=== PATIENT | male | born 1980 | race Caucasian/White ===

== ENCOUNTER 2017-12-18 16:11 | Emergency (ER) | payer MEDICARE, MEDICAID ==
[~2017-12-18 16:11] MED LIST: Acetaminophen/HYDROcodone 325-5 MG Tab ONE
--- NOTE | 2017-12-18 20:02 | ER ---
The patient is a 37-year-old male who presents to the ER with a chief complaint of dental pain and swelling. He had his upper teeth removed approximately 1 week ago. He was started on amoxicillin, but does not feel that it is helping. He does not have fever. He does not have nausea, vomiting, or cough, but does have difficulty eating due to discomfort. The patient denies any other symptoms. ALLERGIES: IBUPROFEN, HE HAS HAD A GI BLEED WITH THIS. CURRENT MEDICATIONS: Lisinopril 20 mg p.o. daily, Protonix 40 mg p.o. daily, Abilify 2 mg p.o. daily, Paxil 10 mg p.o. daily, albuterol metered dose inhaler 2 puffs q.6. PHYSICAL EXAMINATION: GENERAL: He is alert and oriented, in no apparent distress. VITAL SIGNS: Blood pressure is 142/100, pulse is 111, temperature is 98, O2 sats 99%, respirations are 16. HEENT: Generally unremarkable other than the patient has all of his upper teeth extracted. The gums are erythematous. There is some fibrinous exudate on the gums. There is no obvious bulging on the gingival membranes. NECK: Supple. No nodes. LUNGS: Clear. HEART: Regular sinus rhythm. ASSESSMENT: Dental infection. PLAN: I have changed him over to clindamycin 300 mg p.o. q.8. The patient was given enough to last him until Wednesday when he will need to go fill his prescription for the remainder. I also gave him in the ER pack of hydrocodone 5/325, he can take one p.o. q.4-6 as needed. Discussed with him that he should probably not take Tylenol with it as he should not be taking more than 3250 mg of Tylenol daily, which would be 6 extra-strength Tylenol or 10 regular Tylenol in total and each of the hydrocodone was count as 1 regular Tylenol. The patient to return to clinic if this fails to improve over the next few days or for any worsening symptoms. JANA/SANDRA /[id number]
[2017-12-18 20:42] VITALS: BP 142/100
== END 2017-12-18 17:00 | disposition home or self-care (01) ==
LOC: LB.ED 16:11
DX: K04.7 Periapical abscess without sinus (principal)
CPT/HCPCS: 99282; A9270-GY

== ENCOUNTER 2017-12-19 12:51 | Emergency (ER) | payer MEDICARE, MEDICAID ==
[2017-12-19 12:56] VITALS: BP 154/101
[2017-12-19] MEDS ORDERED: Acetaminophen/oxyCODONE 325-5 MG Tab ONE (13:00)
[2017-12-19] MEDS: Ketorolac 60 MG/2 ML SDV IM ONE (13:10)
--- NOTE | 2017-12-19 14:18 | ER ---
HISTORY OF PRESENT ILLNESS: The patient is a 37-year-old male who comes in today with a continued tooth pain. He was seen in the ER yesterday, was given some hydrocodone and some clindamycin. He had been taking amoxicillin from the dentist, but had run out, and notes it really did not seem to be working. The patient's pain is mostly on the left. He has had most of his upper right teeth extracted about a week ago. The patient appears likely to have a dry socket. I discussed with him that he could try some Orajel and clove oil also. I have recommended he continues to stay on the clindamycin. We gave him some hydrocodone yesterday, but that did not appear to be effective. The patient does not have an allergy to NSAIDs, but did have a previous GI bleed. He is currently on Protonix. We will have him increase his Protonix to twice a day. He can try some Advil for some short-term relief, which will help, and we gave him a shot of Toradol 60 mg IM in the emergency room. I also gave him a prescription for some Percocet 5/325 one to two p.o. q.4-6, 10 tablets dispensed in the ER, and I gave him a prescription for 10 more tablets that he can fill until he can get to the dentist on Wednesday. I did recommend that he really needs to go back and see the dentist on Wednesday as he will probably need to have the sockets cleaned out and packed with a dressing, which I do not have available here. His physical exam is unchanged, and he is still afebrile. JANA/SANDRA /[id number]
--- NOTE | 2018-01-31 08:38 | ER ---
ADDENDUM: FINAL DIAGNOSIS: Dental pain. JANA/MODL /[id number]
== END 2017-12-19 13:35 | disposition home or self-care (01) ==
LOC: LB.ED 12:51
DX: K08.89 Other specified disorders of teeth and supporting structures (principal)
CPT/HCPCS: 96372; 99282; 99282-25; A9270-GY; J1885

== ENCOUNTER 2019-06-01 10:49 | Emergency (ER) | payer MEDICARE, MEDICAID ==
[2019-06-11] MEDS ORDERED: EPINEPHrine 1:10,000 1 MG/10 ML Syringe ONE (07:17)
[2019-06-14 09:29] VITALS: BP_SYST 67
== END 2019-06-05 10:55 | disposition home or self-care (01) ==
LOC: LB.ED 10:49
DX: Z53.21 Procedure and treatment not carried out due to patient leaving prior to being seen by health care provider (principal)

== ENCOUNTER → 2019-06-01 | Outpatient (CLI) | payer MEDICARE, OTHER | LOC: LB.CLINIC 11:39 | PROVIDERS: ATTEND Nurse Practitioner Family | DX: I10 Essential (primary) hypertension (principal) | CPT/HCPCS: 36415; 80048 ==

== ENCOUNTER 2019-06-04 15:54 | Emergency (ER) | payer MEDICARE, OTHER ==
[2019-06-04 16:10] VITALS: BP 147/96; PULSE 111
[2019-06-04] MEDS ORDERED: Amoxicillin/Clavulanate K 875-125 MG Tab ONE (16:15)
--- NOTE | 2019-06-04 17:30 | ER ---
REASON FOR EMERGENCY ROOM VISIT: Left-sided neck pain. HISTORY OF PRESENT ILLNESS: This 39-year-old gentleman woke up this morning with soreness involving his left neck. It is worsened gradually throughout the day. It is increased with moving as well as mastication. He has no prior history of neck pain or injury. He has not had any fever. He has recently required the fitting for upper dentures and has had some gum soreness involving the left side for the past 2 days. He has a history of prior dental infections and abscesses and has had multiple extractions which culminated in his having complete upper dentures. He has had no fever or chills. PAST MEDICAL HISTORY: 1. OCD. 2. Peptic ulcer disease. 3. History of alcohol abuse. 4. History of dental infections as listed above. MEDICATIONS: Medications reviewed. See EMR. They include the following. Abilify, Paxil for OCD, Protonix, Prazosin, lisinopril, and Singulair. ALLERGIES: TO NSAIDS. REVIEW OF SYSTEMS: Pertinent positives and negatives as listed in HPI. PHYSICAL EXAMINATION: GENERAL: He is a pleasant gentleman, in no acute distress. He is afebrile. His pulse is 111, blood pressure 147/96, respirations 18, O2 sats 98%. HEENT: Head is normocephalic. No conjunctivitis is noted. TMs are normal. Oropharynx, he has some redness and swelling involving a maxillary gingiva on the left side with and it appears to be excoriated over approximately 1 cm length over his gum on the left side. This area is tender. There is no purulence noted. The oropharynx itself looks normal. NECK: Examination of his neck, he does have some mild to moderate adenopathy which is tender and extends all the way up to the angle of his mandible on the left side. The passive range of motion is normal. There is no tenderness to palpation or percussion over his cervical spine. There is no cervical spine paraspinal muscle spasm. CHEST: Clear to auscultation. CARDIAC: Regular rate without murmur. IMPRESSION: Gingivitis on the left with reactive adenopathy causing pain. PLAN: I recommended that he gargle every 2 hours alternating between saltwater and Listerine or Scope or some other similar mouthwash. In addition, we will give him amoxicillin/clavulanic 875 mg 1 p.o. b.i.d. x5 days. I told him to keep his dentures out until he has called and made an appointment to see his dentist to see if he can get refitted or to find some remedy to obviate this from recurring. All questions were answered. He understands and agrees. MONIKA/SANDRA /[id number]
== END 2019-06-04 16:30 | disposition home or self-care (01) ==
LOC: LB.ED 15:54
DX: K05.10 Chronic gingivitis, plaque induced (principal); Z88.8 Allergy status to other drugs, medicaments and biological substances
CPT/HCPCS: 99283; A9270

== ENCOUNTER 2019-06-05 07:55 | Emergency (ER) | payer MEDICARE, OTHER ==
[2019-06-05] MEDS ORDERED: Acetaminophen/HYDROcodone 325-5 MG Tab ONE (09:00)
--- NOTE | 2019-06-05 09:54 | ER ---
REASON FOR VISIT: Dental pain. HISTORY OF PRESENT ILLNESS: This 39-year-old man was in last night with gingivitis involving his left maxillary gum tissue from an ill-fitting denture. He actually had an area of denuded mucosa overlying the area corresponding to his left maxillary molars. This was causing a great deal of pain in his mouth and some reactive adenopathy in his left neck. He was afebrile. Then, he was placed on amoxicillin clavulanate 875 b.i.d. and he assured me that he would be following up with his dentist in [place] this week. He was instructed regarding mouthwashes and the antibiotics and to avoid continued use of his dentures until he could have this issue resolved. Overnight, he returns now because while his neck discomfort has decreased somewhat, the pain in his mouth has kept him up all night and he wishes to get an excuse to stay home from work. PAST MEDICAL HISTORY: See previous note. MEDICATIONS: See previous note from 06/04. REVIEW OF SYSTEMS: Otherwise unremarkable. He has not had any fever or chills. Only localized pain in his mouth that has been most troubling to him. PHYSICAL EXAMINATION: GENERAL: He is afebrile. The area of shallow ulceration actually looks better than yesterday and only faintly visible this morning. NECK: His neck does not have the same degree of tenderness that it did yesterday over the cervical lymph nodes. IMPRESSION: Gingivitis with continued pain. PLAN: I did go ahead and give him hydrocodone 5/325, dispensed #10, 1 every 4 hours p.r.n. for pain. He assures me that he will be able to get in to see his dentist in [place], which I think is the ultimate answer given my limited experience in the specialty. He understands and agrees with this. All questions were answered. ARCHANA /[id number]
[2019-06-05 17:44] VITALS: BP 153/111; PULSE 111
== END 2019-06-05 08:50 | disposition home or self-care (01) ==
LOC: LB.ED 07:55
DX: K05.10 Chronic gingivitis, plaque induced (principal)
CPT/HCPCS: 99282; A9270; 99283

== ENCOUNTER → 2019-06-13 | Outpatient (CLI) | payer MEDICARE, MEDICAID | LOC: LB.CLINIC 16:16 | PROVIDERS: ATTEND Nurse Practitioner Family | DX: R10.9 Unspecified abdominal pain (principal); M25.529 Pain in unspecified elbow | CPT/HCPCS: 36415; 84550; 85025 ==

== ENCOUNTER 2019-07-31 22:43 | Emergency (ER) | payer MEDICARE, MEDICAID ==
[2019-07-31] MEDS ORDERED: hydrOXYzine HCl 25 MG Tab ONE (22:55)
[2019-07-31 23:08] VITALS: BP 142/98; PULSE 91
--- NOTE | 2019-07-31 23:42 | EDM.PDOC ---
ED HPI GENERAL MEDICAL PROBLEM - General Chief Complaint: General Stated Complaint: SEIZURE ACTIVITY Time Seen by Provider: 07/31/19 23:10 Source of Information: Reports: Patient History Limitations: Reports: No Limitations - History of Present Illness INITIAL COMMENTS - FREE TEXT/NARRATIVE: This is a 39yoM here for concerns of seizure activity. His last episode was over 3 years ago and was diagnosed with it during a time of high stress and anxiety. He was placed on vistaril in the past for the same issues and is no longer taking it. He notes some tingling of the left arm and left leg at the same times. He has had this issue with stress as well in the past. Onset: Sudden Duration: Resolved Prior to Arrival Location: Reports: Generalized Severity: Mild Associated Symptoms: Reports: No Other Symptoms - Related Data Allergies Allergy/AdvReac Type Severity Reaction Status Date / Time NSAIDS (Non-Steroidal Allergy Bleeding Verified 07/31/19 22:46 Anti-Inflamma Home Meds: Home Meds Pantoprazole Sodium [Protonix] 40 mg PO DAILY 02/05/17 [History] ARIPiprazole [Abilify] 15 mg PO DAILY 06/28/17 [History] Lisinopril 20 mg PO DAILY 06/28/17 [History] PARoxetine HCl [Paxil] 40 mg PO DAILY 06/28/17 [History] Prazosin [Minpress] 1 tab PO BEDTIME 06/28/17 [History] Amphetamine/Dextroamphetamine [Adderall] 10 mg PO DAILY 07/31/19 [History] hydrOXYzine HCL [Hydroxyzine HCl] 50 mg PO TID PRN #90 tablet 07/31/19 [Rx] Past Medical History HEENT History: Reports: Impaired Vision, Other (See Below) Other HEENT History: Teeth extracted Cardiovascular History: Reports: CAD, Other (See Below) Other Cardiovascular History: 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 Respiratory History: Reports: Asthma Gastrointestinal History: Reports: GERD Musculoskeletal History: Reports: Other (See Below) Other Musculoskeletal History: Femur Fx at age of 9 Neurological History: Reports: Seizure, Other (See Below) Other Neuro History: seizures from anxiety. Psychiatric History: Reports: ADHD, Addiction, Depression, PTSD Endocrine/Metabolic History: Reports: Hypothyroidism Hematologic History: Reports: Folic Acid - Infectious Disease History Infectious Disease History: Reports: Chicken Pox - Past Surgical History HEENT Surgical History: Reports: Adenoidectomy, Tonsillectomy Cardiovascular Surgical History: Reports: None GI Surgical History: Reports: Cholecystectomy Social & Family History - Family History Family Medical History: Noncontributory - Tobacco Use Smoking Status *Q: Current Every Day Smoker Years of Tobacco use: 24 Packs/Tins Daily: 0.5 Used Tobacco, but Quit: No - Caffeine Use Caffeine Use: Reports: Coffee, Energy Drinks, Soda - Recreational Drug Use Recreational Drug Use: No ED ROS GENERAL - Review of Systems Review Of Systems: Comprehensive ROS is negative, except as noted in HPI. ED EXAM, GENERAL - Physical Exam Exam: See Below Exam Limited By: No Limitations General Appearance: Alert, WD/WN, No Apparent Distress Eye Exam: Bilateral Eye: EOMI, PERRL Ears: Normal External Exam Nose: Normal Inspection Throat/Mouth: Normal Inspection Head: Atraumatic, Normocephalic Neck: Normal Inspection Respiratory/Chest: No Respiratory Distress Cardiovascular: Normal Peripheral Pulses, Regular Rate, Rhythm GI/Abdominal: Normal Bowel Sounds Extremities: Normal Inspection Neurological: Alert, Oriented, CN II-XII Intact, Normal Cognition, Normal Gait, Normal Reflexes, No Motor/Sensory Deficits Psychiatric: Normal Affect, Normal Mood Skin Exam: Warm, Dry, Intact Course - Vital Signs Last Recorded V/S: Last Vital Signs Temp 36.1 C 07/31/19 22:52 Pulse 91 07/31/19 22:52 Resp 20 07/31/19 22:52 BP 142/98 H 07/31/19 22:52 Pulse Ox 99 07/31/19 22:52 Departure - Departure Time of Disposition: 23:30 Disposition: Home, Self-Care 01 Condition: Good Clinical Impression: Absence attack - Discharge Information Prescriptions: hydrOXYzine HCL [Hydroxyzine HCl] 50 mg PO TID PRN #90 tablet PRN Reason: Anxiety Instructions: Hydroxyzine capsules or tablets Forms: ED Department Discharge Additional Instructions: Take provided Vistaril as instructed: 2 tablets by mouth tonight, then 2 more tablets when you wake in morning (doses should be at least 8 hours apart). casework supervisor prescription for additional Vistaril at regular pharmacy tomorrow. Keep scheduled appointment with telepsych. Follow up in clinic as needed. Call with any questions. Sepsis Event Note - Evaluation Sepsis Screening Result: No Definite Risk - Focused Exam Vital Signs: Vital Signs Temp Pulse Resp BP Pulse Ox 07/31/19 22:52 36.1 C 91 20 142/98 H 99 Date Exam was Performed: 07/31/19 Time Exam was Performed: 23:32 - Problem List & Annotations (1) Absence attack SNOMED Code(s): 27819359 Code(s): G40.A09 - ABSENCE EPILEPTIC SYNDROME, NOT INTRACTABLE, W/O STAT EPI Status: Suspected Priority: High - Problem List Review Problem List Initiated/Reviewed/Updated: Yes - Assessment/Plan Plan: Counseled on medication management and f/u if symptoms return. Discussed f/u in clinic and ER as needed. Continue current medications and refill to be sent to Pharmacy. F/u with Psychiatry on the as scheduled.
== END 2019-07-31 23:24 | disposition home or self-care (01) ==
LOC: LB.ED 22:43
DX: G40.A09 Absence epileptic syndrome, not intractable, without status epilepticus (principal); I25.10 Atherosclerotic heart disease of native coronary artery without angina pectoris; K21.9 Gastro-esophageal reflux disease without esophagitis; J45.909 Unspecified asthma, uncomplicated; F32.9 Major depressive disorder, single episode, unspecified; E03.9 Hypothyroidism, unspecified; F17.210 Nicotine dependence, cigarettes, uncomplicated; Z88.8 Allergy status to other drugs, medicaments and biological substances; Z79.899 Other long term (current) drug therapy
CPT/HCPCS: 99283; A9270

== ENCOUNTER 2019-08-03 22:29 | Observation (INO) | payer MEDICARE, MEDICAID ==
[2019-08-03] MEDS ORDERED: HYDROXYZINE HCL 50 MG PO PRN (23:34)
[2019-08-03] MEDS ORDERED: MVI, Adult with Vitamin K 10 ML, Thiamine 100 MG, Folic Acid 1 MG, Magnesium Sulfate 3 ... IV SCH ×5 (23:45)
[2019-08-03] MEDS ORDERED: LORazepam 2 MG/ML SDV IVPUSH PRN (23:48)
[2019-08-04] MEDS: Sodium Chloride 0.9% 1,000 ML IV SCH ×2 (00:25→06:49)
--- NOTE | 2019-08-04 00:52 | ER ---
REASON FOR EMERGENCY ROOM VISIT: Apparent alcohol intoxication and inappropriate behavior. HISTORY OF PRESENT ILLNESS: This 39-year-old man has been to the emergency room on a number of different occasions for alcohol-related problems in the past. Apparently, he states he has been drinking vodka all day. The ambulance was called after a family member found him lying on snowbank apparently in an intoxicated state with slurred speech, etc. They tried to bring him in the house, and he was acting somewhat violently and inappropriately. He started doing unusual things like chewing on the stove, etc. He was taken to the shelter by police officers but shortly after arrival there, he fell and struck his head, and they felt that he should be evaluated for this. He denies any pain at this time. PAST MEDICAL HISTORY: 1. Multiple visits related to alcohol intoxication and possible drug abuse in the past. 2. PTSD. 3. History of depression. 4. History of seizures. 5. History of coronary artery disease. 6. History of CVA. 7. Hypothyroidism. MEDICATIONS: Reviewed. Please see electronic medical record. They include the followin. Hydroxyzine. 2. Prazosin. 3. Protonix. 4. Paxil. 5. Lisinopril. 6. Adderall. 7. Abilify. ALLERGIES: TO NSAIDS. REVIEW OF SYSTEMS: Difficult to obtain at this time. All pertinent positives and negatives as listed in the HPI. PHYSICAL EXAMINATION: GENERAL: His speech is somewhat slurred, consistent with intoxication. He has a smell of alcohol on his breath. VITAL SIGNS: His temperature is 36.4 degrees, heart rate is 110, blood pressure 140/96, respirations 20, O2 sats 98%. HEENT: Head is atraumatic. TMs are normal. Pupils are equally round and reactive to light. Oropharynx is normal. NECK: Supple. No adenopathy. No tenderness. CHEST: Clear to auscultation. CARDIAC: Regular rate without murmur. ABDOMEN: Soft, nontender. EXTREMITIES: Normal pulses. No edema. NEUROLOGIC: He moves all 4 extremities to command. His speech is slurred, as mentioned above, consistent with intoxication. LABORATORY DATA: His CBC is within normal limits as is his urinalysis. A CBC shows that his electrolytes are normal. He does have some transaminase elevations with an AST of 55, ALT of 126, and alkaline phosphatase of 197. A blood alcohol level is 252, which is significantly elevated. A CT scan of his head without contrast showed no acute injury or any significant abnormalities. IMPRESSION: Alcohol intoxication. PLAN: He will be admitted and observed. We will treat him with a banana bag intravenously and hydrate him as well. He will be given Ativan as needed for any agitation. He agrees with this plan. ARCHANA /[id number]
[2019-08-04] MEDS ORDERED: MVI, Adult with Vitamin K 10 ML, Thiamine 100 MG, Folic Acid 1 MG, Magnesium Sulfate 3 ... IV ONE ×10 (04:00→07:45)
[2019-08-04] MEDS ORDERED: Pantoprazole 40 MG Tab.CR PO SCH (08:00)
[2019-08-04] MEDS ORDERED: Non-Formulary Medication 1 Each (Paroxetine Hcl [Paxil] 40 MG) PO SCH (08:00)
[2019-08-04] MEDS ORDERED: AMPHETAMINE PO SCH (08:00)
[2019-08-04] MEDS ORDERED: Lisinopril 20 MG Tab PO SCH (08:00)
[2019-08-04] MEDS ORDERED: DEXTROAMPHETAMINE PO SCH (08:00)
[2019-08-04] MEDS ORDERED: Non-Formulary Medication 1 Each (Aripiprazole [Abilify] 15 MG) PO SCH (08:00)
--- NOTE | 2019-08-04 09:39 | CT ---
Date of Service: 08/03/19 Clinical Data: Had a fall, with alcohol intoxication NONENHANCED BRAIN CT: Multislice acquisition through brain without IV contrast was performed. No priors. No masses or mass effect. No intracranial hemorrhage. No evidence of acute or subacute infarct. No osseous abnormalities. IMPRESSION: No acute intracranial abnormalities. [id number] [facility]
[2019-08-04 11:40] VITALS: PULSE 93
[2019-08-04 11:41] VITALS: BP 147/95
[2019-08-04] MEDS ORDERED: PRAZOSIN PO SCH (20:00)
--- NOTE | 2019-08-07 08:10 | DISCH ---
ADMISSION DIAGNOSIS: Acute alcohol intoxication. DISCHARGE DIAGNOSIS: Acute alcohol intoxication. HISTORY: This 39-year-old man has had a history of alcohol abuse in the past. Yesterday, he admits that he had started drinking vodka throughout the day, and he was found lying in the snowbank quite obviously intoxicated last evening. He was subsequently noted to be somewhat violent and exhibiting inappropriate behavior (see admission history and physical). He was going to be taken to skilled nursing. However, when he arrived at skilled nursing, he fell and struck his head, prompting an ER visit. When he was seen last night, he had slurred speech and alcohol on his breath and a blood alcohol level of 252. He underwent a CT scan of his head without contrast, which showed no acute injury. He was admitted and observed overnight. He was given 1 banana bag with multivitamins, thiamine, and folic acid. On evaluating him this morning, he is completely appropriate, answers questions appropriately and offers no complaints. He wishes to be discharged at this time. I did have a long talk with him about alcohol abuse. He gives me his assurance that he will abstain. We did talk very briefly about treatment, etc., and he has simply nodded his head and said he would take that into consideration. Discharge diagnosis is acute alcohol intoxication, resolved. He will be discharged and was instructed to follow up with his provider, whereupon potential treatment programs can be discussed. ARCHANA /[id number]
== END 2019-08-04 13:00 | disposition home or self-care (01) ==
LOC: LB.ED 22:29 → UNDOADMOB 08-04 00:48 → LB.MS 08-04 00:48
PROVIDERS: ADMIT Surgery; ATTEND Surgery
DX: F10.129 Alcohol abuse with intoxication, unspecified (principal); F32.9 Major depressive disorder, single episode, unspecified; F43.10 Post-traumatic stress disorder, unspecified; I25.10 Atherosclerotic heart disease of native coronary artery without angina pectoris; E03.9 Hypothyroidism, unspecified; Z88.6 Allergy status to analgesic agent; Z79.899 Other long term (current) drug therapy; Z86.73 Personal history of transient ischemic attack (TIA), and cerebral infarction without residual deficits
CPT/HCPCS: 36415; 70450; 80053; 80307; 85025; 96361; 96365; 99234; A0425; A0429; A9270-GY; G0378; G0480; J3411; J3475; J3490; J7030

== ENCOUNTER 2019-08-21 09:08 | Emergency (ER) | payer MEDICARE, MEDICAID ==
[2019-08-21 10:19] VITALS: BP 140/97; PULSE 99
--- NOTE | 2019-08-21 12:02 | EDM.PDOC ---
ED HPI GENERAL MEDICAL PROBLEM - General Chief Complaint: General Stated Complaint: RIGHT TOE INFLAMED Time Seen by Provider: 08/21/19 09:20 Source of Information: Reports: Patient History Limitations: Reports: No Limitations - History of Present Illness INITIAL COMMENTS - FREE TEXT/NARRATIVE: This is a 39M here for a right big toe redness and irritation. He denies any fever or other concerns. Onset: Gradual Duration: Day(s):, Getting Worse Location: Reports: Lower Extremity, Right Quality: Reports: Ache Severity: Mild Improves with: Reports: None Worsens with: Reports: None - Related Data Allergies Allergy/AdvReac Type Severity Reaction Status Date / Time NSAIDS (Non-Steroidal Allergy Bleeding Verified 08/21/19 09:19 Anti-Inflamma Home Meds: Home Meds Pantoprazole Sodium [Protonix] 40 mg PO DAILY 02/05/17 [History] ARIPiprazole [Abilify] 15 mg PO DAILY 06/28/17 [History] Lisinopril 20 mg PO DAILY 06/28/17 [History] PARoxetine HCl [Paxil] 40 mg PO DAILY 06/28/17 [History] Prazosin [Minpress] 1 tab PO BEDTIME 06/28/17 [History] Amphetamine/Dextroamphetamine [Adderall] 10 mg PO DAILY 07/31/19 [History] hydrOXYzine HCL [Hydroxyzine HCl] 50 mg PO TID PRN #90 tablet 07/31/19 [Rx] Past Medical History HEENT History: Reports: Impaired Vision, Other (See Below) Other HEENT History: Teeth extracted Cardiovascular History: Reports: CAD, Other (See Below) Other Cardiovascular History: 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 Respiratory History: Reports: Asthma Gastrointestinal History: Reports: GERD Musculoskeletal History: Reports: Other (See Below) Other Musculoskeletal History: Femur Fx at age of 9 Neurological History: Reports: Seizure, Other (See Below) Other Neuro History: seizures from anxiety. Psychiatric History: Reports: ADHD, Addiction, Depression, PTSD Endocrine/Metabolic History: Reports: Hypothyroidism Hematologic History: Reports: Folic Acid - Infectious Disease History Infectious Disease History: Reports: Chicken Pox - Past Surgical History HEENT Surgical History: Reports: Adenoidectomy, Tonsillectomy Cardiovascular Surgical History: Reports: None GI Surgical History: Reports: Cholecystectomy Social & Family History - Family History Family Medical History: Noncontributory - Tobacco Use Smoking Status *Q: Unknown Ever Smoked Used Tobacco, but Quit: No Second Hand Smoke Exposure: No - Caffeine Use Caffeine Use: Reports: Soda - Recreational Drug Use Recreational Drug Use: No ED ROS GENERAL - Review of Systems Review Of Systems: Comprehensive ROS is negative, except as noted in HPI. ED EXAM, GENERAL - Physical Exam Exam: See Below Exam Limited By: No Limitations General Appearance: Alert, WD/WN, No Apparent Distress Ears: Normal External Exam Nose: Normal Inspection Head: Atraumatic, Normocephalic Neck: Normal Inspection Respiratory/Chest: No Respiratory Distress, Lungs Clear Cardiovascular: Normal Peripheral Pulses, Regular Rate, Rhythm Extremities: Other (right big toe redness and tenderness at the lateral nail fold and tip of toe) Course - Vital Signs Last Recorded V/S: Last Vital Signs Temp 36.5 C 08/21/19 09:15 Pulse 99 08/21/19 09:15 Resp 18 08/21/19 09:15 BP 140/97 H 08/21/19 09:15 Pulse Ox 100 08/21/19 09:15 Departure - Departure Time of Disposition: 10:00 Disposition: Home, Self-Care 01 Condition: Good Clinical Impression: Ingrown toenail with infection - Discharge Information Instructions: Toe Deformity Repair, Care After Referrals: PCP,None [Primary Care Provider] - Forms: ED Department Discharge Care Plan Goals: follow up specialist RX at [facility]. Any further problems call your primary MD or return to ER if more emergent Sepsis Event Note - Evaluation Sepsis Screening Result: No Definite Risk - Focused Exam Vital Signs: Vital Signs Temp Pulse Resp BP Pulse Ox 08/21/19 09:15 36.5 C 99 18 140/97 H 100 Date Exam was Performed: 08/21/19 Time Exam was Performed: 11:57 - Problem List & Annotations (1) Ingrown toenail with infection SNOMED Code(s): 847215549 Code(s): L60.0 - INGROWING NAIL Status: Acute Priority: High - Problem List Review Problem List Initiated/Reviewed/Updated: Yes - Assessment/Plan Plan: Counseled on antibiotics treatment and side effects and management. Discussed f/ u for toe nail removal or other procedure as needed if symptoms persist or worse or recur. F/u as needed.
== END 2019-08-21 09:30 | disposition home or self-care (01) ==
LOC: LB.ED 09:08
DX: L60.0 Ingrowing nail (principal); K21.9 Gastro-esophageal reflux disease without esophagitis; F90.9 Attention-deficit hyperactivity disorder, unspecified type; F41.9 Anxiety disorder, unspecified; Z79.899 Other long term (current) drug therapy; Z88.6 Allergy status to analgesic agent
CPT/HCPCS: 99283

== ENCOUNTER 2019-09-01 15:00 | Emergency (ER) | payer MEDICARE, MEDICAID ==
[2019-09-01 15:15] VITALS: BP 165/100; PULSE 116
[2019-09-01] MEDS ORDERED: Acetaminophen/HYDROcodone 325-10 MG Tab ONE (15:40)
--- NOTE | 2019-09-01 15:56 | EDM.PDOC ---
ED HPI GENERAL MEDICAL PROBLEM - General Time Seen by Provider: 09/01/19 15:27 Source of Information: Reports: Patient, Significant Other History Limitations: Reports: No Limitations - History of Present Illness INITIAL COMMENTS - FREE TEXT/NARRATIVE: Gavin presents with concern over being off his dilantin. As he had been free of any seizures for many years, he had a trial of tapering off. He was observed by his girlfriend to have more than one tonic-clonic seizures this morning. He otherwise has been in his usual state of health, albeit some ongoing issues with chronic back pain. He feels very sore in his muscles, which is typical after a seizure. He remains quite emotional. At this point,he is requesting to restart his dilantin. He verbalizes understanding of seeing his doctor within 1-2 weeks and the need for lab monitoring. No recent trauma, fever, motor deficits, or significant psychiatric concerns. Onset: Other (estimates started one month ago) Duration: Getting Worse Location: Reports: Generalized Bilateral Generalized Pain Score (Numeric/FACES): 8 - Related Data Allergies Allergy/AdvReac Type Severity Reaction Status Date / Time NSAIDS (Non-Steroidal Allergy Bleeding Verified 08/21/19 09:19 Anti-Inflamma Home Meds: Home Meds Pantoprazole Sodium [Protonix] 40 mg PO DAILY 02/05/17 [History] ARIPiprazole [Abilify] 15 mg PO DAILY 06/28/17 [History] Lisinopril 20 mg PO DAILY 06/28/17 [History] PARoxetine HCl [Paxil] 40 mg PO DAILY 06/28/17 [History] Prazosin [Minpress] 1 tab PO BEDTIME 06/28/17 [History] Amphetamine/Dextroamphetamine [Adderall] 10 mg PO DAILY 07/31/19 [History] hydrOXYzine HCL [Hydroxyzine HCl] 50 mg PO TID PRN #90 tablet 07/31/19 [Rx] Past Medical History HEENT History: Reports: Impaired Vision, Other (See Below) Other HEENT History: Teeth extracted Cardiovascular History: Reports: CAD, Other (See Below) Other Cardiovascular History: 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 Respiratory History: Reports: Asthma Gastrointestinal History: Reports: GERD Musculoskeletal History: Reports: Other (See Below) Other Musculoskeletal History: Femur Fx at age of 9 Neurological History: Reports: Seizure, Other (See Below) Other Neuro History: seizures from anxiety. Psychiatric History: Reports: ADHD, Addiction, Depression, PTSD Endocrine/Metabolic History: Reports: Hypothyroidism Hematologic History: Reports: Folic Acid - Infectious Disease History Infectious Disease History: Reports: Chicken Pox - Past Surgical History HEENT Surgical History: Reports: Adenoidectomy, Tonsillectomy Cardiovascular Surgical History: Reports: None GI Surgical History: Reports: Cholecystectomy Social & Family History - Family History Family Medical History: Noncontributory - Caffeine Use Caffeine Use: Reports: Soda - Recreational Drug Use Recreational Drug Use: No ED ROS GENERAL - Review of Systems Review Of Systems: Comprehensive ROS is negative, except as noted in HPI. - Physical Exam Exam: See Below Exam Limited By: No Limitations General Appearance: Alert, WD/WN, Anxious Eye Exam: Bilateral Eye: EOMI, Normal Inspection Ears: Normal External Exam, Hearing Grossly Normal Nose: Normal Inspection Throat/Mouth: Normal Lips Head Exam: Atraumatic, Normocephalic Neck: Normal Inspection, Supple, Non-Tender, Full Range of Motion Respiratory/Chest: No Respiratory Distress, Lungs Clear, Normal Breath Sounds Cardiovascular: Regular Rate, Rhythm, No Gallop, No Murmur, No Rub GI/Abdominal: Soft, Non-Tender Neuro Exam (Abbreviated): Alert, Oriented, CN II-XII Intact, Normal Cognition, No Motor/Sensory Deficits Extremities: Normal Inspection, Normal Range of Motion, Normal Capillary Refill Psychiatric: Anxious Skin Exam: Warm, Dry Course - Vital Signs Text/Narrative:: attributable to anxious demeanor and he will follow and recheck with primary MD Last Recorded V/S: Last Vital Signs Temp 97.8 F 09/01/19 15:13 Pulse 116 H 09/01/19 15:13 Resp 16 09/01/19 15:13 BP 165/100 H 09/01/19 15:13 Pulse Ox 99 09/01/19 15:13 - Orders/Labs/Meds Meds: Medications Discontinued Medications Generic Name Dose Route Start Last Admin Trade Name Freq PRN Reason Stop Dose Admin Hydrocodone Bitart/Acetaminophen Confirm 09/01/19 15:40 [place] 325-10 Mg Administered 09/01/19 15:41 Dose 1 tab .ROUTE .STK-MED ONE Departure - Departure Time of Disposition: 15:45 Disposition: Home, Self-Care 01 Clinical Impression: Seizure - Discharge Information *PRESCRIPTION DRUG MONITORING PROGRAM REVIEWED*: No *COPY OF PRESCRIPTION DRUG MONITORING REPORT IN PATIENT MARCI: No Instructions: Seizure, Adult, Coping With Non-Epileptic Seizures Referrals: PCP,None [Primary Care Provider] - Care Plan Goals: Take medications as prescribed, follow up with neurologist on the as previously scheduled. Return with any questions or concerns. Sepsis Event Note - Evaluation Sepsis Screening Result: No Definite Risk - Focused Exam Vital Signs: Vital Signs Temp Pulse Resp BP Pulse Ox 09/01/19 15:13 97.8 F 116 H 16 165/100 H 99 Date Exam was Performed: 09/01/19 Time Exam was Performed: 15:49
== END 2019-09-01 15:58 | disposition home or self-care (01) ==
LOC: LB.ED 15:00
DX: R56.9 Unspecified convulsions (principal); I25.10 Atherosclerotic heart disease of native coronary artery without angina pectoris; K21.9 Gastro-esophageal reflux disease without esophagitis; F90.9 Attention-deficit hyperactivity disorder, unspecified type; E03.9 Hypothyroidism, unspecified; F32.9 Major depressive disorder, single episode, unspecified; J06.9 Acute upper respiratory infection, unspecified; Z88.6 Allergy status to analgesic agent; Z79.899 Other long term (current) drug therapy; Z90.49 Acquired absence of other specified parts of digestive tract
CPT/HCPCS: 36415; 85025; 87804; 99283; 99284; A9270

== ENCOUNTER 2019-09-16 09:50 | Emergency (ER) | payer MEDICARE, MEDICAID ==
[2019-09-16] MEDS ORDERED: Triamcinolone Acetonide 40 MG/ML 1 ML MDV ONE (10:25)
--- NOTE | 2019-09-16 10:43 | EDM.PDOC ---
ED HPI GENERAL MEDICAL PROBLEM - General Time Seen by Provider: 09/16/19 10:12 Source of Information: Reports: Patient History Limitations: Reports: No Limitations - History of Present Illness INITIAL COMMENTS - FREE TEXT/NARRATIVE: Gavin presents with ongoing left shoulder pain. Fell on the ice 09/05. Isolated injury to left shoulder. No neck pain or head trauma. Pain with forward flexion and int. or external rotation. No radicular features. Distal left arm strength excellent. Trigger injection in the clinic with transient relief. Avoids nsaids due to upper gi bleed after years of nsaids. Tramadol is effective. - Related Data Allergies Allergy/AdvReac Type Severity Reaction Status Date / Time NSAIDS (Non-Steroidal Allergy Bleeding Verified 09/16/19 10:12 Anti-Inflamma Home Meds: Home Meds Pantoprazole Sodium [Protonix] 40 mg PO DAILY 02/05/17 [History] ARIPiprazole [Abilify] 15 mg PO DAILY 06/28/17 [History] Lisinopril 20 mg PO DAILY 06/28/17 [History] PARoxetine HCl [Paxil] 40 mg PO DAILY 06/28/17 [History] Prazosin [Minpress] 1 tab PO BEDTIME 06/28/17 [History] Amphetamine/Dextroamphetamine [Adderall] 10 mg PO DAILY 07/31/19 [History] Pregabalin [Lyrica] 150 mg PO DAILY 09/16/19 [History] Past Medical History HEENT History: Reports: Impaired Vision, Other (See Below) Other HEENT History: Teeth extracted Cardiovascular History: Reports: CAD, Other (See Below) Other Cardiovascular History: 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 Respiratory History: Reports: Asthma Gastrointestinal History: Reports: GERD Musculoskeletal History: Reports: Other (See Below) Other Musculoskeletal History: Femur Fx at age of 9 Neurological History: Reports: Seizure, Other (See Below) Other Neuro History: seizures from anxiety. Psychiatric History: Reports: ADHD, Addiction, Depression, PTSD Endocrine/Metabolic History: Reports: Hypothyroidism Hematologic History: Reports: Folic Acid - Infectious Disease History Infectious Disease History: Reports: Chicken Pox - Past Surgical History HEENT Surgical History: Reports: Adenoidectomy, Tonsillectomy Cardiovascular Surgical History: Reports: None GI Surgical History: Reports: Cholecystectomy Social & Family History - Family History Family Medical History: Noncontributory - Caffeine Use Caffeine Use: Reports: Soda Review of Systems - Review of Systems Review Of Systems: Comprehensive ROS is negative, except as noted in HPI. ED EXAM, GENERAL - Physical Exam Exam: See Below Exam Limited By: No Limitations General Appearance: Alert, WD/WN, No Apparent Distress Head: Atraumatic, Normocephalic Neck: Normal Inspection, Supple, Non-Tender, Full Range of Motion Respiratory/Chest: No Respiratory Distress Back Exam: Normal Inspection, Muscle Spasm (left trapezius). No: Paraspinal Tenderness, Vertebral Tenderness Extremities: Normal Inspection, Normal Range of Motion, Non-Tender (to careful palpation of neck, leftshoulder, and left arm), Other (rotator cuff strength intact, positive Ashley's ) Neurological: Alert, Oriented, Normal Cognition, Normal Gait, No Motor/Sensory Deficits Psychiatric: Normal Affect, Normal Mood Skin Exam: Warm, Dry Lymphatic: No Adenopathy Course - Orders/Labs/Meds Meds: Medications Discontinued Medications Generic Name Dose Route Start Last Admin Trade Name Derrick PRN Reason Stop Dose Admin Triamcinolone Acetonide Confirm 09/16/19 10:25 Kenalog-40 Administered 09/16/19 10:26 Dose 40 mg .ROUTE .STK-MED ONE Departure - Departure Time of Disposition: 10:40 Disposition: Home, Self-Care 01 Clinical Impression: Rotator cuff disorder Qualifiers: Laterality: left Qualified Code(s): M67.912 - Unspecified disorder of synovium and tendon, left shoulder - Discharge Information Instructions: Tramadol tablets, Muscle Strain, [id number], Tizanidine tablets or capsules Referrals: PCP,None [Primary Care Provider] - Care Plan Goals: Continue to ice shoulder as you have been. Take zanaflex 4 mg and take thre times daily as needed. Take tramadol 50mg one tablet 3 x day as needed for pain.. Not to be off work today. PT ordered to evaluate and treat. Call them if you do not receive a call from them to set up appointment
[2019-09-16 10:45] VITALS: BP 153/99; PULSE 81
== END 2019-09-16 10:38 | disposition home or self-care (01) ==
LOC: LB.ED 09:50
DX: M67.912 Unspecified disorder of synovium and tendon, left shoulder (principal); K21.9 Gastro-esophageal reflux disease without esophagitis; I25.10 Atherosclerotic heart disease of native coronary artery without angina pectoris; F32.9 Major depressive disorder, single episode, unspecified; J45.909 Unspecified asthma, uncomplicated; F41.9 Anxiety disorder, unspecified; Z79.899 Other long term (current) drug therapy; Z88.8 Allergy status to other drugs, medicaments and biological substances
CPT/HCPCS: 20552; 99283; J3301

== ENCOUNTER 2019-09-24 08:22 | Emergency (ER) | payer MEDICARE, MEDICAID ==
--- NOTE | 2019-09-24 08:41 | EDM.PDOC ---
ED HPI GENERAL MEDICAL PROBLEM - General Chief Complaint: Upper Extremity Injury/Pain Stated Complaint: SHOULDER PAIN Time Seen by Provider: 09/24/19 08:30 Source of Information: Reports: Patient History Limitations: Reports: No Limitations - History of Present Illness INITIAL COMMENTS - FREE TEXT/NARRATIVE: This patient presents to the ED for shoulder pain. He states he fell on and landed on his left shoulder. He has been seen on two occasions since that time for this and had negative x-rays. He has been treated with opioids and muscle relaxers for the pain. He is here today because the pain is "too much for him to stand." He denies any new injuries or falls. He states he has been taking acetaminophen along with the other prescribed medications and that he is using ice and a sling but the pain is too bad. He states he cannot take NSAID medications because "my stomach bleeds." He is requesting additional pain medications. He is not wearing a sling on arrival and does remove his jacket without assistance. Onset: Sudden Onset Date: 09/05/19 Onset Time: 09:00 Duration: Getting Worse Location: Reports: Upper Extremity, Left Quality: Reports: Ache Severity: Severe Worsens with: Reports: None Associated Symptoms: Reports: No Other Symptoms Treatments QUILL REAMER: Reports: Acetaminophen, Other (see below) (sling) - Related Data Allergies Allergy/AdvReac Type Severity Reaction Status Date / Time NSAIDS (Non-Steroidal Allergy Bleeding Verified 09/16/19 10:12 Anti-Inflamma Home Meds: Home Meds Pantoprazole Sodium [Protonix] 40 mg PO DAILY 02/05/17 [History] ARIPiprazole [Abilify] 15 mg PO DAILY 06/28/17 [History] Lisinopril 20 mg PO DAILY 06/28/17 [History] PARoxetine HCl [Paxil] 40 mg PO DAILY 06/28/17 [History] Prazosin [Minpress] 1 tab PO BEDTIME 06/28/17 [History] Amphetamine/Dextroamphetamine [Adderall] 10 mg PO DAILY 07/31/19 [History] Pregabalin [Lyrica] 150 mg PO DAILY 09/16/19 [History] Past Medical History HEENT History: Reports: Impaired Vision, Other (See Below) Other HEENT History: Teeth extracted Cardiovascular History: Reports: CAD, Hypertension, Other (See Below) Other Cardiovascular History: 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 Respiratory History: Reports: Asthma Gastrointestinal History: Reports: GERD Musculoskeletal History: Reports: Other (See Below) Other Musculoskeletal History: Femur Fx at age of 9 Neurological History: Reports: Seizure, Other (See Below) Other Neuro History: seizures from anxiety. Psychiatric History: Reports: ADHD, Addiction, Depression, PTSD Endocrine/Metabolic History: Reports: Hypothyroidism Hematologic History: Reports: Folic Acid - Infectious Disease History Infectious Disease History: Reports: Chicken Pox - Past Surgical History HEENT Surgical History: Reports: Adenoidectomy, Tonsillectomy Cardiovascular Surgical History: Reports: None GI Surgical History: Reports: Cholecystectomy Social & Family History - Family History Family Medical History: Noncontributory - Caffeine Use Caffeine Use: Reports: Soda ED ROS GENERAL - Review of Systems Review Of Systems: See Below Constitutional: Reports: No Symptoms HEENT: Reports: No Symptoms Respiratory: Reports: No Symptoms Cardiovascular: Reports: No Symptoms GI/Abdominal: Reports: No Symptoms Musculoskeletal: Reports: Joint Pain Skin: Reports: No Symptoms Neurological: Reports: No Symptoms ED EXAM, GENERAL - Physical Exam Exam: See Below Exam Limited By: No Limitations General Appearance: Alert, WD/WN, Moderate Distress Eye Exam: Bilateral Eye: PERRL Ears: Normal External Exam Nose: Normal Inspection Throat/Mouth: Normal Inspection Head: Atraumatic, Normocephalic Neck: Normal Inspection, Full Range of Motion Respiratory/Chest: No Respiratory Distress Extremities: Other (Tenderness with palpation of left AC joint, ROM limited by pain. No swelling, discoloration, or deformity noted. Distal CMS intact.) Neurological: Alert, Oriented Skin Exam: Warm, Dry Departure - Departure Time of Disposition: 08:45 Disposition: Home, Self-Care 01 Condition: Good Clinical Impression: Shoulder pain, left - Discharge Information Forms: ED Department Discharge
[2019-09-24 08:42] VITALS: BP 159/102; PULSE 88
== END 2019-09-24 08:45 | disposition home or self-care (01) ==
LOC: LB.ED 08:22
DX: M25.512 Pain in left shoulder (principal); I10 Essential (primary) hypertension; I25.10 Atherosclerotic heart disease of native coronary artery without angina pectoris; K21.9 Gastro-esophageal reflux disease without esophagitis; F32.9 Major depressive disorder, single episode, unspecified; F43.10 Post-traumatic stress disorder, unspecified; Z79.899 Other long term (current) drug therapy; Z88.8 Allergy status to other drugs, medicaments and biological substances
CPT/HCPCS: 99283

== ENCOUNTER 2019-10-04 13:02 | Emergency (ER) | payer MEDICARE, MEDICAID ==
[2019-10-04] MEDS ORDERED: diphenhydrAMINE 50 MG/ML SDV IVPUSH ONE (14:23)
[2019-10-04] MEDS ORDERED: LORazepam 2 MG/ML SDV IVPUSH ONE (14:24)
[2019-10-04] MEDS ORDERED: Ketamine 200 MG/20 ML MDV IVPUSH ONE (14:27)
[2019-10-04] MEDS ORDERED: LORazepam 2 MG/ML SDV ONE (14:37)
[2019-10-04] MEDS ORDERED: diphenhydrAMINE 50 MG/ML SDV ONE (14:37)
[2019-10-04 15:03] VITALS: BP 150/106; PULSE 114
[2019-10-04] MEDS ORDERED: MVI, Adult with Vitamin K 10 ML, Thiamine 100 MG, Folic Acid 1 MG, Magnesium Sulfate 3 ... IV ONE ×5 (15:10)
--- NOTE | 2019-10-05 09:09 | EDM.PDOC ---
ED HPI GENERAL MEDICAL PROBLEM - General Chief Complaint: Upper Extremity Injury/Pain Stated Complaint: SHOULD PAIN/THREATENING SELF HARM Time Seen by Provider: 10/04/19 14:15 - History of Present Illness INITIAL COMMENTS - FREE TEXT/NARRATIVE: Gavin presents to the emergency room today after a complex history of ongoing left shoulder pain. He fell [place] the ice on [place] landing on an outstretched left hand. Since then he has had intractable pain of his left shoulder. Today he was down from a chair getting a radiofrequency ablation of his lumbar spine, and underwent general anesthesia with propofol and fentanyl. He states he awoke with extreme pain. He checked into the ER there and was discharged. He called our hospital and apparently made some statements of potential self-harm due to not getting a refill of opioids. Gavin denies any new injuries. He states that the pain is extreme and seems localized along the midpoint of the upper aspect of his left trapezius body. He states that now he thinks he may have a frozen shoulder from chronic immobilization. Interestingly, he also believes that movement seems to make it worse. He denies any precipitating movements including that of his neck and has full range of motion of his left shoulder. He has noticed no distal left upper extremity symptoms. No sx's of thoracic outlet syndrome, exertional component, or association with respirations. He denies self-harm explaining that he mainly wanted people to take him seriously. His notes that he had 2 prior attempts as a teen. Gavin denies a plan. He is awaiting MRI next Wednesday, and seems convinced that he has a rotator cuff strain. Left Shoulder Pain Score (Numeric/FACES): 8 - Related Data Allergies Allergy/AdvReac Type Severity Reaction Status Date / Time NSAIDS (Non-Steroidal Allergy Bleeding Verified 09/16/19 10:12 Anti-Inflamma Home Meds: Home Meds Pantoprazole Sodium [Protonix] 40 mg PO DAILY 02/05/17 [History] ARIPiprazole [Abilify] 15 mg PO DAILY 06/28/17 [History] Lisinopril 20 mg PO DAILY 06/28/17 [History] PARoxetine HCl [Paxil] 40 mg PO DAILY 06/28/17 [History] Prazosin [Minpress] 1 tab PO BEDTIME 06/28/17 [History] Amphetamine/Dextroamphetamine [Adderall] 10 mg PO DAILY 07/31/19 [History] Pregabalin [Lyrica] 150 mg PO DAILY 09/16/19 [History] Past Medical History HEENT History: Reports: Impaired Vision, Other (See Below) Other HEENT History: Teeth extracted Cardiovascular History: Reports: CAD, Hypertension, Other (See Below) Other Cardiovascular History: 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 Respiratory History: Reports: Asthma Gastrointestinal History: Reports: GERD Musculoskeletal History: Reports: Other (See Below) Other Musculoskeletal History: Femur Fx at age of 9 Neurological History: Reports: Seizure, Other (See Below) Other Neuro History: seizures from anxiety. Psychiatric History: Reports: ADHD, Addiction, Depression, PTSD Endocrine/Metabolic History: Reports: Hypothyroidism Hematologic History: Reports: Folic Acid - Infectious Disease History Infectious Disease History: Reports: Chicken Pox - Past Surgical History HEENT Surgical History: Reports: Adenoidectomy, Tonsillectomy Cardiovascular Surgical History: Reports: None GI Surgical History: Reports: Cholecystectomy Social & Family History - Family History Family Medical History: Noncontributory - Tobacco Use Smoking Status *Q: Current Every Day Smoker Years of Tobacco use: 20 Packs/Tins Daily: 0.5 Used Tobacco, but Quit: No Second Hand Smoke Exposure: No - Caffeine Use Caffeine Use: Reports: Coffee - Recreational Drug Use Recreational Drug Use: No Review of Systems - Review of Systems Review Of Systems: Comprehensive ROS is negative, except as noted in HPI. ED EXAM, GENERAL - Physical Exam Exam: See Below Exam Limited By: No Limitations General Appearance: Alert, WD/WN, No Apparent Distress Ears: Normal External Exam, Hearing Grossly Normal Nose: Normal Inspection Throat/Mouth: Normal Inspection Head: Atraumatic, Normocephalic Neck: Normal Inspection, Supple, Non-Tender, Full Range of Motion Respiratory/Chest: No Respiratory Distress, Lungs Clear, Normal Breath Sounds, No Accessory Muscle Use Cardiovascular: Regular Rate, Rhythm, No Gallop, No Murmur, No Rub GI/Abdominal: Normal Bowel Sounds, Soft, Non-Tender Back Exam: Normal Inspection, Full Range of Motion, Muscle Spasm (with trigger point of mid-upper trapezius on the left; no scapular tenderness evident). No: Vertebral Tenderness Extremities: Normal Inspection, Normal Range of Motion (on active basis ), Non- Tender, Other (Empty can test positive on the left suggesting involvement of his supraspinatus; otherwise rotator cuff integrity displays adequate strength; Xiong sign is definitely positive with an equivocal Neer's sign; Spurling's maneuver is negative) Neurological: Alert, Oriented, CN II-XII Intact, Normal Cognition, Normal Gait, No Motor/Sensory Deficits Psychiatric: Normal Affect, Normal Mood Skin Exam: Warm, Dry Lymphatic: No Adenopathy Course - Vital Signs Text/Narrative:: We spent a lot of time talking to Gavin about his demeanor today. He admits to being somewhat anxious, and his initial hypertension and slight tachycardia is attributed to this, as this gradually resolves upon talking to him. He was provided with a [id number] clavicle brace. He verbalized understanding after informed consent regarding ketamine. This was provided after premedication with a small dose of ativan to help ensure a positive mindset, and benadryl to mitigate any salivation. He tolerated this well, resulting in complete pain relief. No complications noted. Last Recorded V/S: Last Vital Signs Temp 97.8 F 10/04/19 13:45 Pulse 114 H 10/04/19 13:45 Resp 20 10/04/19 13:45 BP 150/106 H 10/04/19 13:45 Pulse Ox 100 10/04/19 14:26 - Orders/Labs/Meds Orders: Active Orders 24 hr Category Date Time Status Cardiac Monitoring [RC] .As Directed Care 10/04/19 14:25 Active Oxygen Therapy, ED [RC] ASDIRECTED Care 10/04/19 14:26 Active Meds: Medications Discontinued Medications Generic Name Dose Route Start Last Admin Trade Name Derrick PRN Reason Stop Dose Admin Diphenhydramine HCl 25 mg 10/04/19 14:23 10/04/19 14:41 Benadryl IVPUSH 10/04/19 14:24 25 mg ONETIME ONE Administration Diphenhydramine HCl Confirm 10/04/19 14:37 10/04/19 14:42 Benadryl Administered 10/04/19 14:38 Not Given Dose 50 mg .ROUTE .STK-MED ONE Multivitamins/Minerals 10 ml/ 1,017.2 mls @ 500 mls/hr 10/04/19 15:10 15:13 Thiamine HCl 100 mg/ Folic IV 10/04/19 17:12 500 mls/hr Acid 1 mg/ Magnesium Sulfate 3 ONETIME ONE Administration gm/ Sodium Chloride Ketamine HCl 15 mg 10/04/19 14:27 10/04/19 14:58 Ketalar IVPUSH 10/04/19 14:28 15 mg ONETIME ONE Administration Lorazepam 1 mg 10/04/19 14:24 10/04/19 14:52 Ativan IVPUSH 10/04/19 14:25 1 mg ONETIME ONE Administration Lorazepam Confirm 10/04/19 14:37 10/04/19 14:41 Ativan Administered 10/04/19 14:38 Not Given Dose 2 mg .ROUTE .STK-MED ONE Departure - Departure Time of Disposition: 17:00 Disposition: Home, Self-Care 01 Condition: Good Clinical Impression: Left shoulder pain Qualifiers: Chronicity: unspecified Qualified Code(s): M25.512 - Pain in left shoulder - Discharge Information Referrals: PCP,None [Primary Care Provider] - Forms: ED Department Discharge Additional Instructions: Keep applied immobilizer in place to shoulder area to help with pain relief. Continue all previously prescribed medications as directed. Follow up in clinic as needed. Call with any questions. Sepsis Event Note - Evaluation Sepsis Screening Result: No Definite Risk - Focused Exam Date Exam was Performed: 10/05/19 Time Exam was Performed: 09:09 - My Orders Last 24 Hours: My Active Orders 10/04/19 14:25 Cardiac Monitoring [RC] .As Directed 10/04/19 14:26 Oxygen Therapy, ED [RC] ASDIRECTED - Assessment/Plan Last 24 Hours: My Active Orders 10/04/19 14:25 Cardiac Monitoring [RC] .As Directed 10/04/19 14:26 Oxygen Therapy, ED [RC] ASDIRECTED
== END 2019-10-04 17:32 | disposition home or self-care (01) ==
LOC: EEVIPCON 13:02 → LB.ED 13:02
DX: M25.512 Pain in left shoulder (principal); I25.10 Atherosclerotic heart disease of native coronary artery without angina pectoris; I10 Essential (primary) hypertension; K21.9 Gastro-esophageal reflux disease without esophagitis; J45.909 Unspecified asthma, uncomplicated; F32.9 Major depressive disorder, single episode, unspecified; F17.210 Nicotine dependence, cigarettes, uncomplicated; Z88.8 Allergy status to other drugs, medicaments and biological substances; Z79.899 Other long term (current) drug therapy
CPT/HCPCS: 96365; 96366; 96375; 99283; 99284; J1200; J2060; J3411; J3475; J7030; J3490

== ENCOUNTER 2019-10-08 16:04 | Emergency (ER) | payer MEDICARE, MEDICAID ==
[2019-10-08] MEDS ORDERED: Ketamine 200 MG/20 ML MDV IVPUSH ONE (16:52)
[2019-10-08] MEDS ORDERED: LORazepam 2 MG/ML SDV IVPUSH ONE (16:53)
[2019-10-08] MEDS ORDERED: diphenhydrAMINE 50 MG/ML SDV IVPUSH ONE (16:54)
--- NOTE | 2019-10-08 17:30 | EDM.PDOC ---
ED HPI GENERAL MEDICAL PROBLEM - General Chief Complaint: General Stated Complaint: LEFT SHOULDER PAIN Time Seen by Provider: 10/08/19 17:15 Source of Information: Reports: Patient, Family History Limitations: Reports: No Limitations - History of Present Illness INITIAL COMMENTS - FREE TEXT/NARRATIVE: Gavin presents today requesting a repeat infusion of ketamine. He was provided this for intractable left shoulder pain without clear etiology. He is known to have "nonepileptic form seizure disorder" confirmed on video EEG monitoring. His primary physician has confided in me about him possibly psychosomatizing. When I discussed this with him in the office several days ago, he was familiar with this term. He does follow with psych. He also follows with chronic pain in [place]. He has frequent presentations to both the emergency room in the clinic. He states that his pain started coming back yesterday. Other than that he had a decent week. No new injury or features. He has not been ill, nor has he had any fevers. He feels well today, except for his severe left shoulder pain. He is set up for MRI Wednesday followed by orthopedic consultation. - Related Data Allergies Allergy/AdvReac Type Severity Reaction Status Date / Time NSAIDS (Non-Steroidal Allergy Bleeding Verified 09/16/19 10:12 Anti-Inflamma Home Meds: Home Meds Pantoprazole Sodium [Protonix] 40 mg PO DAILY 02/05/17 [History] ARIPiprazole [Abilify] 15 mg PO DAILY 06/28/17 [History] Lisinopril 20 mg PO DAILY 06/28/17 [History] PARoxetine HCl [Paxil] 40 mg PO DAILY 06/28/17 [History] Prazosin [Minpress] 1 tab PO BEDTIME 06/28/17 [History] Amphetamine/Dextroamphetamine [Adderall] 10 mg PO DAILY 07/31/19 [History] Pregabalin [Lyrica] 150 mg PO DAILY 09/16/19 [History] Past Medical History HEENT History: Reports: Impaired Vision, Other (See Below) Other HEENT History: Teeth extracted Cardiovascular History: Reports: CAD, Hypertension, Other (See Below) Other Cardiovascular History: 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 Respiratory History: Reports: Asthma Gastrointestinal History: Reports: GERD Musculoskeletal History: Reports: Other (See Below) Other Musculoskeletal History: Femur Fx at age of 9 Neurological History: Reports: Seizure, Other (See Below) Other Neuro History: seizures from anxiety. Psychiatric History: Reports: ADHD, Addiction, Depression, PTSD Endocrine/Metabolic History: Reports: Hypothyroidism Hematologic History: Reports: Folic Acid - Infectious Disease History Infectious Disease History: Reports: Chicken Pox - Past Surgical History HEENT Surgical History: Reports: Adenoidectomy, Tonsillectomy Cardiovascular Surgical History: Reports: None GI Surgical History: Reports: Cholecystectomy Social & Family History - Family History Family Medical History: Noncontributory - Caffeine Use Caffeine Use: Reports: Coffee ED ROS GENERAL - Review of Systems Review Of Systems: Comprehensive ROS is negative, except as noted in HPI. ED EXAM, GENERAL - Physical Exam Exam: See Below Exam Limited By: No Limitations General Appearance: Alert, WD/WN, No Apparent Distress Eye Exam: Bilateral Eye: EOMI, PERRL Ears: Normal External Exam, Hearing Grossly Normal Nose: Normal Inspection Throat/Mouth: Normal Inspection, Normal Lips, Normal Oropharynx, Normal Voice, No Airway Compromise Head: Atraumatic, Normocephalic Neck: Normal Inspection, Supple, Non-Tender, Full Range of Motion Respiratory/Chest: No Respiratory Distress, Lungs Clear, Normal Breath Sounds Cardiovascular: Regular Rate, Rhythm, No Gallop, No Murmur, No Rub GI/Abdominal: Normal Bowel Sounds, Soft, Non-Tender Extremities: Normal Inspection, Normal Range of Motion, Normal Capillary Refill Neurological: Alert, Oriented, CN II-XII Intact, Normal Cognition, No Motor/ Sensory Deficits Psychiatric: Normal Affect, Normal Mood Skin Exam: Warm, Dry Lymphatic: No Adenopathy Course - Vital Signs Text/Narrative:: Reviewed indications of sub-dissociative ketamine with Gavin, mainly to provide him with some pain relief while we await MRI and orthopedic consultation and provided him with 25 mg IV which he tolerated incredibly well. He was ambulatory shortly thereafter and was discharged in good condition and I encouraged him to follow-up in the clinic to continue to sort out his plethora of musculoskeletal and pain issues. - Orders/Labs/Meds Orders: Active Orders 24 hr Category Date Time Status Cardiac Monitoring [RC] .As Directed Care 10/08/19 16:54 Active Oxygen Therapy [RC] ASDIRECTED Care 10/08/19 16:54 Active Meds: Medications Discontinued Medications Generic Name Dose Route Start Last Admin Trade Name Freq PRN Reason Stop Dose Admin Diphenhydramine HCl 50 mg 10/08/19 16:54 10/08/19 18:36 Benadryl IVPUSH 10/08/19 16:55 50 mg ONETIME ONE Administration Diphenhydramine HCl Confirm 10/08/19 18:08 Benadryl Administered 10/08/19 18:09 Dose 50 mg .ROUTE .STK-MED ONE Ketamine HCl 25 mg 10/08/19 16:52 10/08/19 18:36 Ketalar IVPUSH 10/08/19 16:53 25 mg ONETIME ONE Administration Lorazepam 0.5 mg 10/08/19 16:53 10/08/19 18:37 Ativan IVPUSH 10/08/19 16:54 0.5 mg ONETIME ONE Administration Lorazepam Confirm 10/08/19 18:08 Ativan Administered 10/08/19 18:09 Dose 2 mg .ROUTE .STK-MED ONE Departure - Departure Time of Disposition: 19:00 Disposition: Home, Self-Care 01 Condition: Good Clinical Impression: Pain - Discharge Information Instructions: Shoulder Pain Referrals: PCP,None [Primary Care Provider] - Forms: ED Department Discharge Sepsis Event Note - Focused Exam Date Exam was Performed: 10/08/19 Time Exam was Performed: 19:06 - My Orders Last 24 Hours: My Active Orders 10/08/19 16:54 Cardiac Monitoring [RC] .As Directed Oxygen Therapy [RC] ASDIRECTED - Assessment/Plan Last 24 Hours: My Active Orders 10/08/19 16:54 Cardiac Monitoring [RC] .As Directed Oxygen Therapy [RC] ASDIRECTED
[2019-10-08] MEDS ORDERED: LORazepam 2 MG/ML SDV ONE (18:08)
[2019-10-08] MEDS ORDERED: diphenhydrAMINE 50 MG/ML SDV ONE (18:08)
[2019-10-08 20:36] VITALS: BP 128/89; PULSE 90
== END 2019-10-08 19:04 | disposition home or self-care (01) ==
LOC: LB.ED 16:04
DX: M25.512 Pain in left shoulder (principal); I25.10 Atherosclerotic heart disease of native coronary artery without angina pectoris; I10 Essential (primary) hypertension; K21.9 Gastro-esophageal reflux disease without esophagitis; F41.9 Anxiety disorder, unspecified; Z79.899 Other long term (current) drug therapy; Z88.8 Allergy status to other drugs, medicaments and biological substances; J45.909 Unspecified asthma, uncomplicated; F32.9 Major depressive disorder, single episode, unspecified
CPT/HCPCS: 96374; 96375; 99283-25; 99284; J1200; J2060

== ENCOUNTER 2019-10-31 10:42 | Emergency (ER) | payer MEDICARE, MEDICAID ==
[2019-10-31 11:27] VITALS: BP 161/116; PULSE 114
--- NOTE | 2019-10-31 11:32 | EDM.PDOC ---
ED HPI GENERAL MEDICAL PROBLEM - General Chief Complaint: Upper Extremity Injury/Pain Stated Complaint: LEFT SHOULDER INJURY Time Seen by Provider: 10/31/19 11:10 Source of Information: Reports: Patient History Limitations: Reports: No Limitations - History of Present Illness INITIAL COMMENTS - FREE TEXT/NARRATIVE: This patient presents to the ED for evaluation of left shoulder pain. This is his 5th ED for the same concern; has has also been seen in the clinic 4 times for this and is currently followed by [facility] where he was evaluated yesterday. Apparently he has an injury to his rotator cuff that will be treated conservatively with PT and NSADs. Patient states he knows he needs surgery and that these things "don't heal on their own." He states he fell onto his shoulder this morning and needs something for the pain because he "can't take NSAIDs" and wants what he got here the last time (ketamine). He is unable to state the mechanism of his fall this morning but reiterates that he "fell right on it." He is wearing a sling. Onset: Other (July 2018) Duration: Constant Location: Reports: Upper Extremity, Left (shoulder) - Related Data Allergies Allergy/AdvReac Type Severity Reaction Status Date / Time NSAIDS (Non-Steroidal Allergy Bleeding Verified 09/16/19 10:12 Anti-Inflamma Home Meds: Home Meds Pantoprazole Sodium [Protonix] 40 mg PO DAILY 02/05/17 [History] ARIPiprazole [Abilify] 15 mg PO DAILY 06/28/17 [History] Lisinopril 20 mg PO DAILY 06/28/17 [History] PARoxetine HCl [Paxil] 40 mg PO DAILY 06/28/17 [History] Prazosin [Minpress] 1 tab PO BEDTIME 06/28/17 [History] Amphetamine/Dextroamphetamine [Adderall] 10 mg PO DAILY 07/31/19 [History] Pregabalin [Lyrica] 150 mg PO DAILY 09/16/19 [History] Past Medical History HEENT History: Reports: Impaired Vision, Other (See Below) Other HEENT History: Teeth extracted Cardiovascular History: Reports: CAD, Hypertension, Other (See Below) Other Cardiovascular History: 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 Respiratory History: Reports: Asthma Gastrointestinal History: Reports: GERD Musculoskeletal History: Reports: Other (See Below) Other Musculoskeletal History: Femur Fx at age of 9 Neurological History: Reports: Seizure, Other (See Below) Other Neuro History: seizures from anxiety. Psychiatric History: Reports: ADHD, Addiction, Depression, PTSD Endocrine/Metabolic History: Reports: Hypothyroidism Hematologic History: Reports: Folic Acid - Infectious Disease History Infectious Disease History: Reports: Chicken Pox - Past Surgical History HEENT Surgical History: Reports: Adenoidectomy, Tonsillectomy Cardiovascular Surgical History: Reports: None GI Surgical History: Reports: Cholecystectomy Social & Family History - Family History Family Medical History: Noncontributory - Caffeine Use Caffeine Use: Reports: Coffee Review of Systems - Review of Systems Review Of Systems: Comprehensive ROS is negative, except as noted in HPI. ED EXAM, GENERAL - Physical Exam Exam: See Below Exam Limited By: No Limitations General Appearance: Alert, WD/WN, No Apparent Distress Respiratory/Chest: No Respiratory Distress, No Accessory Muscle Use Extremities: Other (Left shoulder: tenderness with palpation of scapula, no tenderness with palpation of AC joint or clavicle. No deformity or swelling noted. Distal CMS intact. ) Neurological: Alert, Oriented Skin Exam: Warm, Dry Course - Vital Signs Last Recorded V/S: Last Vital Signs Temp Pulse 114 H 10/31/19 11:05 Resp 20 10/31/19 11:05 BP 161/116 H 10/31/19 11:05 Pulse Ox 100 10/31/19 11:05 - Re-Assessments/Exams Free Text/Narrative Re-Assessment/Exam: 10/31/19 11:42 This patient presents to the ED requesting pain medication (ketamine) for his shoulder pain. When denied this medication, he requested Tramadol "or something else like that." I explained to him that at this point, those types of medications were not indicated for a musculoskeletal injury and that he should use the medications prescribed to him by his orthopedic provider. He states that he cannot take NSAIDs and is instead taking "5200 mg of tylenol" every day. I encouraged him to continue to use supportive care measures and to follow up with his orthopedic provider as instructed. Departure - Departure Time of Disposition: 11:30 Disposition: Home, Self-Care 01 Condition: Good, Fair Clinical Impression: Shoulder pain - Discharge Information *PRESCRIPTION DRUG MONITORING PROGRAM REVIEWED*: No Referrals: PCP,None [Primary Care Provider] - Forms: ED Department Discharge Sepsis Event Note - Focused Exam Vital Signs: Vital Signs Pulse Resp BP Pulse Ox 04/07/20 11:05 114 H 20 161/116 H 100 Date Exam was Performed: 10/31/19 Time Exam was Performed: 11:38
== END 2019-10-31 11:15 | disposition home or self-care (01) ==
LOC: LB.ED 10:42
DX: M25.512 Pain in left shoulder (principal); I10 Essential (primary) hypertension; I25.10 Atherosclerotic heart disease of native coronary artery without angina pectoris; J45.909 Unspecified asthma, uncomplicated; K21.9 Gastro-esophageal reflux disease without esophagitis; F32.9 Major depressive disorder, single episode, unspecified; Z88.8 Allergy status to other drugs, medicaments and biological substances; Z79.899 Other long term (current) drug therapy
CPT/HCPCS: 99282; 99283